=== PATIENT | male | born 1995 | race African-American/Black ===

== ENCOUNTER 2017-11-13 17:44 | Emergency (ER) | payer BC ==
[~2017-11-13] VITALS: Ht 177.8 cm; Wt 75.0 kg
[2017-11-13 17:45] VITALS: BP 136/65; PULSE 78; RESP 16; TEMP 97.1; O2SAT 100
[2017-11-13] MEDS ORDERED: IBUPROFEN 600 MG TAB PO ONE (18:00)
[2017-11-13] MEDS ORDERED: TETANUS/DIPHTHERIA TOXOID ADULT 0.5 ML VIAL IM ONE (18:00)
--- NOTE | 2017-11-13 18:01 | PD ---
HPI Chief Complaint: Injury Time Seen by Provider: 17:56 Travel History International Travel<30 days: No Contact w/Intl Traveler<30days: No Traveled to known affect area: No History of Present Illness HPI 21-year-old right-hand dominant male presents to the ED for evaluation of right hand pain. Rated 2 out of 10, worsened by touch. No alleviating factors reported. Onset after the patient fell off his skateboard and landed on his outstretched hand on the concrete. He denies numbness, tingling, weakness, limitations to range of motion of the extremity. Unsure of the date of his last tetanus immunization. Denies previous injury. No treatment attempted at home. [facility] Social History Tobacco Use: No Allergies-Medications (Allergen,Severity, Reaction): Coded Allergies: No Known Allergies (Unverified , 11/13/17) Review of Systems Except as stated in HPI: all other systems reviewed are Neg Physical Exam Narrative GENERAL: Well-nourished, well-developed male in no acute distress. SKIN: Focused skin assessment warm/dry. HEAD: Normocephalic. EYES: No scleral icterus. No injection or drainage. NECK: Supple, trachea midline. No JVD or lymphadenopathy. CARDIOVASCULAR: Regular rate and rhythm without murmurs, gallops, or rubs. RESPIRATORY: Breath sounds equal bilaterally. No accessory muscle use. GASTROINTESTINAL: Abdomen soft, non-tender, nondistended. MUSCULOSKELETAL: No cyanosis, or edema. FOCUSED RIGHT UPPER EXTREMITY EXAM: 2+ radial pulse. Superficial abrasion of the distal palm. No snuffbox tenderness. No tenderness to palpation of the joints of the wrist or digits. No pain elicited with supination, pronation, flexion or extension of the wrist. Patient has strong finger to thumb opposition with each digit. There is a strong endpoint to the ulnar collateral ligament. Patient is able to flex and extend the fingers against resistance. Cap refills less than 2 seconds on each digit. Sensation is intact to light touch distally on each digit. BACK: Nontender without obvious deformity. No CVA tenderness. Data Data Last Documented VS Vital Signs Date Time Temp Pulse Resp B/P (MAP) Pulse Ox O2 Delivery O2 Flow Rate FiO2 11/13/17 17:45 97.1 78 16 136/65 (88) 100 Orders Orders Ibuprofen (Motrin) (3/22/18 18:00) Tetanus/Diphtheria Tox Adult (Tetanus/Di (11/13/17 18:00) Ed Discharge Order (11/13/17 18:01) [facility] Medical Decision Making Medical Screen Exam Complete: Yes Emergency Medical Condition: Yes Differential Diagnosis Abrasion versus contusion versus needed for tetanus immunization versus fracture versus dislocation versus other Narrative Course 21-year-old right-hand dominant male presents to the ED for evaluation of 2/10 right hand pain. Onset after the patient fell off his skateboard and landed on his outstretched hand on the concrete. He is unsure of the date of his last tetanus immunization. Vitals reviewed. Focused right upper extremity exam reveals 2+ radial pulse. Superficial abrasion of the distal palm. No snuffbox tenderness. No tenderness to palpation of the joints of the wrist or digits. No pain elicited with supination, pronation, flexion or extension of the wrist. Patient has strong finger to thumb opposition with each digit. There is a strong endpoint to the ulnar collateral ligament. Patient is able to flex and extend the fingers against resistance. Cap refills less than 2 seconds on each digit. Sensation is intact to light touch distally on each digit. Tetanus immunization was updated. Patient was administered 600 mg ibuprofen. He is instructed to use rice therapy, return to normal, gentle activity as tolerated, follow with the orthopedist should symptoms fail to resolve. He indicated understanding the instructions and is agreeable to the care plan. He is stable and discharged home. Diagnosis Primary Impression: Abrasion of palm of right hand Qualified Codes: S60.511A - Abrasion of right hand, initial encounter Additional Impression: Immunization, tetanus toxoid Referrals: Primary Care Physician Additional Instructions: Rest, ice, elevate the extremity. Take ibuprofen as prescribed, as needed for pain. Follow with the orthopedist if symptoms fail to resolve. Return to the ED for worsening symptoms or any urgent or emergent medical condition. Med/Other Pt SpecificInfo: Prescription(s) given Disposition: 01 DISCHARGE HOME Condition: Stable Larissa Boss Nov 13, 2017 18:01
== END 2017-11-13 18:30 | disposition home or self-care (01) ==
LOC: NEPK 17:44
DX: S60.511A Abrasion of right hand, initial encounter (principal); V00.131A Fall from skateboard, initial encounter; Y93.51 Activity, roller skating (inline) and skateboarding; Z23 Encounter for immunization
CPT/HCPCS: 90471; 90714